=== PATIENT | female | born 2000 | race Caucasian/White ===

== ENCOUNTER 2023-12-23 21:39 | Emergency (ER) | payer OTHER ==
[~2023-12-23] VITALS: Ht 165.1 cm; Wt 90.7 kg
[2023-12-23] MEDS ORDERED: Acetaminophen 160MG / 5ML 10.15 UDC PO ONE (23:20)
[2023-12-23] MEDS ORDERED: Ibuprofen 100 MG/5 ML 5ML UDC PO ONE (23:20)
[2023-12-24] MEDS ORDERED: Ketorolac Tromethamine 15mg Vial IM ONE (01:25)
[2023-12-24] MEDS ORDERED: Acetaminophen 500 MG Tab PO ONE (01:25)
[2023-12-24] MEDS ORDERED: IBUP600 PO (01:31)
[2023-12-24] MEDS ORDERED: ACET500 PO (01:32)
[2023-12-24 02:31] LABS: Influenza A, PCR NEGATIVE (NEGATIVE); Influenza B, PCR NEGATIVE (NEGATIVE); Resp Syncytial Virus, PCR NEGATIVE (NEGATIVE); SARS-Cov-2 (COVID-19) PCR, MMC NEGATIVE (NEGATIVE)
== END 2023-12-24 01:41 | disposition home or self-care (01) ==
LOC: ER 21:39
PROVIDERS: Emergency Medicine
DX: J02.8 Acute pharyngitis due to other specified organisms (principal); B97.89 Other viral agents as the cause of diseases classified elsewhere; Z79.899 Other long term (current) drug therapy
CPT/HCPCS: 0241U; 87081; 87147; 87430; 99283; A9270

== ENCOUNTER 2024-02-15 20:27 | Emergency (ER) | payer OTHER ==
[~2024-02-15] VITALS: Ht 162.6 cm; Wt 90.7 kg
[~2024-02-15 20:27] MED LIST: ACET500 PO; IBUP600 PO
[2024-02-15] MEDS ORDERED: Amoxicillin 875 MG Tab PO ONE (20:45)
[2024-02-15] MEDS ORDERED: Amoxicillin875 MG PO (20:45)
== END 2024-02-15 21:34 | disposition home or self-care (01) ==
LOC: ER 20:27
DX: K04.7 Periapical abscess without sinus (principal); Z91.018 Allergy to other foods; Z88.5 Allergy status to narcotic agent
CPT/HCPCS: 64400; 99282-25; A9270